=== PATIENT | female | born 2000 | race Caucasian/White ===

== ENCOUNTER 2022-07-08 13:49 | Emergency (ER) | payer OTHER ==
[2022-07-08 14:38] VITALS: BP_SYST 131
[2022-07-08] MEDS ORDERED: IBUPROFEN 600 MG TABLET PO ONE (15:30)
[2022-07-08] MEDS ORDERED: DIPHTH,PERTUSS(ACELL),TET VAC 0.5 ML VIAL (Tdap) I.M. ONE (15:30)
[2022-07-08] MEDS ORDERED: LIDOCAINE 2%, 20 ML MDV INJ ONE (15:45)
[2022-07-08 16:11] VITALS: BP_SYST 131
== END 2022-07-08 16:11 | disposition home or self-care (01) ==
LOC: SED 13:49
DX: S91.311A Laceration without foreign body, right foot, initial encounter (principal); Z79.899 Other long term (current) drug therapy; W18.2XXA Fall in (into) shower or empty bathtub, initial encounter; Y93.89 Activity, other specified; Y92.89 Other specified places as the place of occurrence of the external cause; Y99.8 Other external cause status
CPT/HCPCS: 99283; 90715; 90471; 12002; J2001